=== PATIENT | female | born 1975 | race Two or more races ===

== ENCOUNTER 2018-06-23 14:42 | Emergency (ER) | payer SELFPAY ==
[~2018-06-23] VITALS: Ht 154.9 cm; Wt 81.6 kg
[2018-06-23 14:50] VITALS: BP 149/81
[2018-06-23] MEDS ORDERED: IBUPROFEN 800 MG TAB PO ONE (15:30)
== END 2018-06-23 15:31 | disposition home or self-care (01) ==
LOC: ER 14:47
DX: S40.861A Insect bite (nonvenomous) of right upper arm, initial encounter (principal); W57.XXXA Bitten or stung by nonvenomous insect and other nonvenomous arthropods, initial encounter; Y93.89 Activity, other specified; Y99.8 Other external cause status; Y92.89 Other specified places as the place of occurrence of the external cause

== ENCOUNTER 2018-06-27 11:46 | Emergency (ER) | payer SELFPAY ==
[~2018-06-27] VITALS: Ht 154.9 cm; Wt 79.4 kg
[2018-06-27 12:52] VITALS: BP 128/72
[2018-06-27] MEDS ORDERED: cefTRIAXone SOD 1,000 MG VL IM ONE (13:00)
== END 2018-06-27 13:38 | disposition home or self-care (01) ==
LOC: ER 11:46
DX: S50.361 Insect bite (nonvenomous) of right elbow (principal); W57.XXXD Bitten or stung by nonvenomous insect and other nonvenomous arthropods, subsequent encounter
CPT/HCPCS: 96372; 99283; J0696